=== PATIENT | female | born 1950 | race Caucasian/White ===

== ENCOUNTER 2019-02-17 09:59 | Observation (INO) | payer MEDICARE ==
[~2019-02-17] VITALS: Ht 152.4 cm; Wt 52.6 kg
[~2019-02-17 09:59] MED LIST: DOXYCYC MONO100 M1 PO; FLUCONAZOLE150 MG PO; FLUZONE SPLT1 M1 IM; MUCINEX600 MG PO
[2019-02-17 10:45] LABS: HEMATOCRIT 37.6 % (37.0-47.0); HEMOGLOBIN 12.5 g/dl (12.0-16.0); MEAN CELL VOLUME 91.7 fL CALC (80.0-100.0); MEAN CORPUSCULAR HGB 30.5 pG CALC (26.0-32.0); MEAN CORPUSCULAR HGB CONC 33.2 g/L CALC (32.0-36.0); NEUT# 2.88 thou/uL (2.00-7.15); RED BLOOD COUNT 4.1 mill/uL (4.20-5.60); RED CELL DISTRI WIDTH 12.4 % (11.5-15.5)
[2019-02-17 11:23] LABS: ALBUMIN 4.7 g/dL (3.2-5.0); ALKALINE PHOSPHATASE 98 u/l (38-126); AMYLASE 93 u/l (30-110); ANION GAP 16 (6-22 (CALC)); BILIRUBIN, TOTAL 0.4 mg/dL (0.0-1.4); BUN 18 mg/dL (8-23); BUN/CREATININE RATIO 17 (12-20 (CALC)); CARBON DIOXIDE 24 mmol/l (22-30); CHLORIDE 105 mmol/l (95-108); GFR 55 ML/MIN (>=60 (CALC)); GFR FOR AFR.AMER. > 60 ML/MIN (>=60 (CALC)); LIPASE 223 u/l (23-300); POTASSIUM 4.2 mmol/l (3.5-5.1); SGOT/AST 26 u/l (9-36); SODIUM 140 mmol/l (137-146); TOTAL PROTEIN 10.4 g/dL (6.3-8.2)
[2019-02-17 11:36] LABS: MYOGLOBIN 42 ng/mL (0 - 62)
[2019-02-17 11:54] LABS: TSH, 3RD GENERATION 2.53 uIU/mL (0.47 - 4.68)
[2019-02-17 12:02] LABS: URINE BILIRUBIN - DIPSTICK NEGATIVE (NEGATIVE); URINE BLOOD DIPSTICK TRACE-LYSED (NEGATIVE); URINE COLOR YELLOW; URINE GLUCOSE - DIPSTICK NEGATIVE (NEGATIVE); URINE KETONE NEGATIVE (NEGATIVE); URINE LEUK ESTERASE NEGATIVE (NEGATIVE); URINE NITRITE - DIPSTICK NEGATIVE (Negative); URINE PROTEIN - DIPSTICK TRACE mg/dL (NEG-TRACE); URINE SPECIFIC GRAVITY <=1.005; URINE UROBILINOGEN - DIPSTICK 0.2 E.U./dL (0.2)
[2019-02-17 12:17] LABS: BARBITURATES NEGATIVE (NEGATIVE); COCAINE NEGATIVE (NEGATIVE); METHADONE NEGATIVE (NEGATIVE); OXCYCODONE NEGATIVE (NEGATIVE); TETRAHYDROCANNABIONOL NEGATIVE (NEGATIVE); TRICYLIC ANTIDEPRESSANTS NEGATIVE (NEGATIVE)
[2019-02-17 15:40] VITALS: BP 119/63
[2019-02-17 18:22] LABS: C-REACTIVE PROTEIN < 0.5 mg/dL (0-0.9)
[2019-02-17 20:00] VITALS: BP 109/70
[2019-02-17 23:47] VITALS: BP 97/54
[2019-02-18 03:39] VITALS: BP 105/61
[2019-02-18 06:15] LABS: CHOLESTEROL HDL RATIO 1.7 (<4.4 (CALC))
[2019-02-18 07:01] VITALS: BP 100/66
[2019-02-18] MEDS ORDERED: MELOXICAM15 MG PO (09:26)
[2019-02-18] MEDS ORDERED: BACLOFEN10 MG PO (09:26)
[2019-02-18 09:43] VITALS: BP 100/66
== END 2019-02-18 11:40 | disposition home or self-care (01) ==
LOC: ED 09:59 → ED-I 12:37 → ED 13:06 → MS2 13:07
PROVIDERS: Emergency Medicine; ADMIT Internal Medicine; ATTEND Internal Medicine
DX: R07.89 Other chest pain (principal); R00.0 Tachycardia, unspecified; E83.52 Hypercalcemia

== ENCOUNTER 2019-04-05 13:57 | Emergency (ER) | payer MEDICARE ==
[~2019-04-05] VITALS: Ht 152.4 cm; Wt 45.6 kg
[~2019-04-05 13:57] MED LIST changes: +BACLOFEN10 MG PO; +MELOXICAM15 MG PO
[2019-04-05] MEDS ORDERED: ALPRAZOLAM0.25 MG PO (14:14)
[2019-04-05 15:18] LABS: HEMATOCRIT 30.4 % (37.0-47.0); HEMOGLOBIN 10.1 g/dl (12.0-16.0); IMMATURE GRANULOCYTES 0.8 % (0.0-5.0); MEAN CELL VOLUME 90.5 fL CALC (80.0-100.0); MEAN CORPUSCULAR HGB 30.1 pG CALC (26.0-32.0); MEAN CORPUSCULAR HGB CONC 33.2 g/L CALC (32.0-36.0); NEUT# 6.12 thou/uL (2.00-7.15); RED BLOOD COUNT 3.36 mill/uL (4.20-5.60); RED CELL DISTRI WIDTH 12.1 % (11.5-15.5)
[2019-04-05 15:27] LABS: ALBUMIN 4.7 g/dL (3.2-5.0); ALKALINE PHOSPHATASE 124 u/l (38-126); AMYLASE 205 u/l (30-110); BILIRUBIN, TOTAL 0.4 mg/dL (0.0-1.4); BUN 64 mg/dL (8-23); CHLORIDE 96 mmol/l (95-108); LIPASE 795 u/l (23-300); SGOT/AST 15 u/l (9-36); SODIUM 132 mmol/l (137-146)
[2019-04-05 15:31] LABS: ACT PARTIAL THROMBO TIME 21.5 SECONDS (20.0-32.5); INTERNATIONAL NORMALIZED RATIO 1.2 RATIO (0.7-1.3)
[2019-04-05 15:43] LABS: ANION GAP 23 (6-22 (CALC)); BUN/CREATININE RATIO 5 (12-20 (CALC)); CARBON DIOXIDE 19 mmol/l (22-30); GFR 3 ML/MIN (>=60 (CALC)); GFR FOR AFR.AMER. 4 ML/MIN (>=60 (CALC)); POTASSIUM 5.7 mmol/l (3.5-5.1)
[2019-04-05 15:44] LABS: TOTAL PROTEIN 12.5 g/dL (6.3-8.2)
[2019-04-05 15:47] LABS: MYOGLOBIN 265 ng/mL (0 - 62)
[2019-04-05 15:57] LABS: D-DIMER 0.27 mg/L (0.19-0.60)
[2019-04-05 18:23] VITALS: BP 154/85
[2019-04-05 18:38] LABS: URINE BILIRUBIN - DIPSTICK NEGATIVE (NEGATIVE); URINE BLOOD DIPSTICK MODERATE (NEGATIVE); URINE COLOR YELLOW; URINE GLUCOSE - DIPSTICK NEGATIVE (NEGATIVE); URINE KETONE 15 mg/dL (NEGATIVE); URINE LEUK ESTERASE MODERATE (NEGATIVE); URINE NITRITE - DIPSTICK NEGATIVE (Negative); URINE PROTEIN - DIPSTICK 100 mg/dL (NEG-TRACE); URINE UROBILINOGEN - DIPSTICK 0.2 E.U./dL (0.2)
[2019-04-05 18:46] LABS: URINE BACTERIA FEW hpf; URINE RBC TNTC RBC/hpf (0-5); URINE SQUAMOUS EPITHELIAL CELL FEW EPI/hpf (0-FEW); URINE WBC TNTC WBC/hpf (0-5)
== END 2019-04-05 18:23 | disposition short-term general hospital (02) ==
LOC: ED 13:57
DX: N17.9 Acute kidney failure, unspecified (principal); K85.90 Acute pancreatitis without necrosis or infection, unspecified; E87.5 Hyperkalemia; E83.52 Hypercalcemia; C90.00 Multiple myeloma not having achieved remission; R11.2 Nausea with vomiting, unspecified; Z72.89 Other problems related to lifestyle; R00.0 Tachycardia, unspecified